=== PATIENT | male | born 1940 | race Hispanic/Latino ===

== ENCOUNTER 2016-08-31 07:28 | Outpatient (CLI) | payer MEDICARE ==
[2016-08-31 08:02] LABS: Anion Gap 16 mmol/L; BUN/Creatinine Ratio 18.18; Blood Urea Nitrogen 20 mg/dL (9-20); Calcium 9.2 mg/dL (8.4-10.2); Carbon Dioxide 29 mmol/L (22-30); Chloride 102.8 mmol/L (98-107); Glucose 98 mg/dL (75-100); Potassium 4.3 mmol/L (3.6-5.0); Sodium 143 mmol/L (137-145)
[2016-08-31] MEDS ORDERED: NACL ONE (08:17)
--- NOTE | 2016-08-31 16:06 | Cat Scan Report ---
CT angiography of the neck with 3-D reconstructed images. History: Carotid stenosis. Findings: The origins of the right innominate, left carotid, and left subclavian arteries from the aortic arch are normal. The common carotid arteries appear normal. There is a 95% stenosis of the proximal left internal carotid artery by NASCET criteria. There is associated circumferential dense atherosclerotic plaque. The distal ICA is normal. At the right common carotid artery bifurcation, there is nonocclusive calcified plaque at the carotid bulb. Minimal nonocclusive calcified plaque is noted at the proximal internal carotid artery. The distal right internal carotid artery is normal. The right vertebral artery is dominant. Impression: High-grade 95% stenosis of the proximal left internal carotid artery with circumferential arterial sclerotic plaque.
== END 2016-08-31 07:29 | disposition home or self-care (01) ==
LOC: CT 07:28
PROVIDERS: ATTEND Internal Medicine
DX: I65.22 Occlusion and stenosis of left carotid artery (principal)
CPT/HCPCS: 36415; 70498; 80048; Q9967